=== PATIENT | male | born 1985 ===

== ENCOUNTER 2016-07-04 05:05 | Emergency (ER) | payer SELFPAY ==
[2016-07-04] MEDS ORDERED: Amoxicillin-Clav 875-125 mg Tab PO STA (05:34)
--- NOTE | 2016-07-04 05:35 | C.PDOC ---
History Of Present Illness 30 yo male come in for evaluation of Right thumb injury sustained hour [employer]. Pt sts, " car door closed on my finger". Noted nail avulsion to Right thumb. Otherwise, pt denies weakness, sensory or vascular deficits to injured hand. Ambulate to ED. - HPI Time Seen by Provider: 07/04/16 05:17 Chief Complaint (Nursing): Trauma History Per: Patient Onset/Duration Of Symptoms: Sudden Onset Past Medical History Reviewed: Historical Data, Nursing Documentation, Vital Signs Vital Signs: Last Vital Signs Temp 97.6 F 07/04/16 05:22 Pulse 88 07/04/16 05:22 Resp 20 07/04/16 05:22 BP 143/75 07/04/16 05:22 Pulse Ox 97 07/04/16 05:34 - Medical History PMH: No Chronic Diseases Family History: States: No Known Family Hx - Social History Hx Alcohol Use: Yes Hx Substance Use: No - Immunization History Hx Tetanus Toxoid Vaccination: No Review Of Systems Except As Marked, All Systems Reviewed And Found Negative. Musculoskeletal: Positive for: Hand Pain Skin: Positive for: Lesions Neurological: Negative for: Weakness, Numbness Physical Exam - Physical Exam Appears: Well, Non-toxic, No Acute Distress Skin: Normal Color, Warm Extremity: Normal ROM (left hand), Capillary Refill (less than 2sec to left hand ), No Deformity, Other (Left hand: thumb nail avulsion with mild bloody oozing. No obvious deformity, FAROM, no neurovascular deficits.) Neurological/Psych: Oriented x3, Normal Speech, Normal Motor, Normal Sensation, Normal Reflexes ED Course And Treatment O2 Sat by Pulse Oximetry: 97 - Other Rad Left hand X-Ray: Interpreted by Me, Viewed By Me Interpretation: no acute fx or dislocation Progress Note: On re-eavl, pt is afebrile, hemodynamicaly stable. Non-toxic. Left hand: nail amputated, nailbed laceration repaired. Wound cover with xeroform/sterille dressing. ALuminium finger splint applied to left thumb. No neurovascular deficits. xray review, no acute fx. tetanus, analgesics, antibiotic oraly given. Pt advised return to ED in 2 days for wound check. return to ed at any time if any worsening or new changes. Laceration - Laceration Repair Left thumb Wound Length (In cm): 1cm Description Of Wound: Irregular (nail avulsion with amputation, nail bed laceration) Anesthesia: Lidocaine 2% (digital block) Wound Examination: Irrigated With Saline, No FB With Wound Exploration, No Tendon Injury With Wound Exploration Wound Closure: Suture (#3) Suture Technique And Material Used: Interrupted, Vicryl (4-0) Wound Complexity: Simple Disposition Counseled Patient/Family Regarding: Studies Performed, Diagnosis, Need For Followup, Rx Given - Disposition Referrals: Rodrigo Heaton MD [Staff Provider] - Disposition: HOME/ ROUTINE Disposition Time: 05:58 Condition: STABLE Additional Instructions: Take medication as prescribed Light duty to injured finger Return to ED in 2 days for wound check. Return to ED at any time if any worsening or new changes. Prescriptions: Amoxicillin/Clavulanate [Augmentin 875 MG-125 MG] 1 tab PO BID #14 tab Ibuprofen [Motrin] 1 tab PO TID PRN #20 tab PRN Reason: Pain Instructions: Nail Avulsion (ED) Print Language: TONGAN - Clinical Impression Clinical Impression: Nail avulsion, finger
[2016-07-04] MEDS ORDERED: Amoxicillin-Clav 875-125 mg Tab PO ONE (06:04)
[2016-07-04 06:17] VITALS: BP 140/70; PULSE 80; RESP 16; TEMP 98; O2SAT 98
--- NOTE | 2016-07-04 09:19 | RAD ---
PROCEDURE: Right Hand Radiographs. HISTORY: injury COMPARISON: None available. FINDINGS: BONES: Well corticated ossific density adjacent to the ulna styloid compatible with remote injury. No acute displaced fracture. JOINTS: No dislocation. SOFT TISSUES: Soft tissue swelling. No evidence of radiopaque foreign body. OTHER FINDINGS: None. IMPRESSION: Soft tissue swelling. No acute displaced fracture, dislocation, or significant joint effusion identified. If symptoms persist, or if there is continued clinical concern, x-ray follow-up in 7-10 days should be considered.
== END 2016-07-04 06:17 | disposition home or self-care (01) ==
LOC: C.ER 05:05
DX: S61.102A Unspecified open wound of left thumb with damage to nail, initial encounter (principal); W23.0XXA Caught, crushed, jammed, or pinched between moving objects, initial encounter

== ENCOUNTER 2016-11-01 21:54 | Emergency (ER) | payer SELFPAY ==
[2016-11-01 22:05] VITALS: RESP 16
[2016-11-01] MEDS ORDERED: Albuterol-Ipratrop 3 mg / 0.5 (3 ml) UD ONE ×3 (22:05→23:33)
[2016-11-01] MEDS ORDERED: Albuterol-Ipratrop 3 mg / 0.5 (3 ml) UD INH STA ×2 (22:19→23:14)
[2016-11-01] MEDS ORDERED: Sodium Chloride 0.9% 1,000 ML IV ONE (22:19)
[2016-11-01 22:33] LABS: BASO % 0.4 % (0.0-2.0); EOS # 0.4 K/uL (0.0-0.7); EOS % 3.9 % (0.0-4.0); HEMATOCRIT 43.2 % (35.0-51.0); LYMPH # 1.6 K/uL (1.0-4.3); LYMPH % 15.9 % (20.0-40.0); MEAN CELL VOLUME 83.7 fL (80.0-94.0); MEAN CORPUSCULAR HEMOGLOBIN 28.7 pg (27.0-31.0); MEAN CORPUSCULAR HGB CONC 34.3 g/dL (33.0-37.0); MEAN PLATELET VOLUME 8.2 fL (7.2-11.7); MONO % 9.9 % (0.0-10.0); WHITE BLOOD COUNT 9.9 K/uL (4.8-10.8)
[2016-11-01 22:41] LABS: CHLORIDE 101 mmol/L (98-107); POTASSIUM 4.1 mmol/L (3.6-5.2); SODIUM 139 mmol/L (132-148)
[2016-11-01 22:44] LABS: ALB/GLOB RATIO 1.2 (1.0-2.1); ALKALINE PHOSPHATASE 82 U/L (38-126); ALT/SGPT 33 U/L (21-72); AST/SGOT 18 U/L (17-59); BILIRUBIN,TOTAL 0.6 mg/dL (0.2-1.3); BLOOD UREA NITROGEN 14 mg/dL (9-20); CARBON DIOXIDE 27 mmol/L (22-30); GFR AFRICAN-AMERICAN > 60; GLUCOSE,RANDOM 90 mg/dL (75-110); TOTAL PROTEIN 7.3 g/dL (6.3-8.3)
[2016-11-01 22:45] LABS: CALCIUM 9.1 mg/dl (8.6-10.4)
--- NOTE | 2016-11-01 23:15 | C.PDOC ---
History Of Present Illness 31 year old male who presents to the ER with a complaint of SOB for the past 1 day, associated with a dry nonproductive cough. Denies fever, chills, Hx of asthma, or recent sick contact. Time Seen by Provider: 11/01/16 22:14 Chief Complaint (Nursing): Shortness Of Breath History Per: Patient History/Exam Limitations: no limitations Onset/Duration Of Symptoms: Days Current Symptoms Are (Timing): Still Present Initiating Event: Other (Not known) Current Respiratory Medications: None Associated Symptoms: denies: Fever, Chills Recent travel outside of the [place]: No Past Medical History Reviewed: Historical Data, Nursing Documentation, Vital Signs Vital Signs: Last Vital Signs Temp 98.7 F 11/01/16 22:04 Pulse 81 11/01/16 22:04 Resp 16 11/01/16 22:04 BP 126/73 11/01/16 22:04 Pulse Ox 93 L 11/01/16 23:18 - Medical History PMH: No Chronic Diseases Surgical History: No Surg Hx Family History: States: Unknown Family Hx - Social History Hx Alcohol Use: Yes Hx Substance Use: No - Immunization History Hx Tetanus Toxoid Vaccination: No Hx Influenza Vaccination: No Hx Pneumococcal Vaccination: No Review Of Systems Constitutional: Negative for: Fever, Chills Respiratory: Positive for: Cough, Shortness of Breath. Negative for: Sputum Physical Exam - Physical Exam Appears: Non-toxic, No Acute Distress Skin: Normal Color, Warm, Dry Head: Atraumatic, Normacephalic Oral Mucosa: Moist Chest: Symmetrical, No Tenderness Cardiovascular: Rhythm Regular, No Murmur Respiratory: No Rales, Rhonchi (Scattered throughout), Wheezing (Scattered throughout) Gastrointestinal/Abdominal: Soft Neurological/Psych: Oriented x3, Normal Speech, Normal Cognition ED Course And Treatment - Laboratory Results Result Diagrams: 11/01/16 22:30 11/01/16 22:30 Lab Interpretation: Normal ECG: Interpreted By Me ECG Rhythm: Sinus Rhythm ECG Interpretation: Normal Rate From EC O2 Sat by Pulse Oximetry: 93 Pulse Ox Interpretation: Abnormal - Radiology CXR: Interpreted by Me CXR Interpretation: Yes: No Acute Disease Progress Note: duoneb, solumedrol, IVF Reevaluation Time: 23:17 Reassessment Condition: Improved Medical Decision Making Medical Decision Making: no industrial nor professional air irritant exposures, but smokes 1 cigar/day ok to treat as opt. Disposition Doctor Will See Patient In The: Office Counseled Patient/Family Regarding: Studies Performed, Diagnosis - Disposition Referrals: [facility] [Outside] [facility] [Outside] [facility] [email or web address] [facility] [Outside] Disposition: HOME/ ROUTINE Disposition Time: 23:18 Condition: GOOD Additional Instructions: Albuterol puffer: 2 puffs every 4 hours always use with Aerochamber Spacer- tubo plastico- se funciona mejor Prednisona 40 mg diario por 4 ley mas Pepcid 20 mg en la noche para prevenir irritacio'n del estomacho debido al prednisona Sigue con la Clinica en 2-3 ley para re-evaluacion' lobo necessario Swati de fumar. Prescriptions: Albuterol HFA [Ventolin HFA 90 mcg/actuation (8 g)] 2 puff IH Q4H PRN #1 unit PRN Reason: asthma Prednisone [Deltasone] 40 mg PO DAILY #8 tablet Spacer, Inhalation [Aerochamber] 1 dev IH DAILY #1 dev Instructions: How to Stop Smoking (ED), Reactive Airways Disease (ED) Forms: [employer] (Comoran) Print Language: EQUATORIAL GUINEAN - Clinical Impression Clinical Impression: Cough, Wheezing - Scribe Statement The provider has reviewed the documentation as recorded by the Scribjuan c Harris All medical record entries made by the Scribe were at my direction and personally dictated by me. I have reviewed the chart and agree that the record accurately reflects my personal performance of the history, physical exam, medical decision making, and the department course for this patient. I have also personally directed, reviewed, and agree with the discharge instructions and disposition.
[2016-11-02 00:11] VITALS: BP 155/83; PULSE 85; TEMP 98; O2SAT 99
--- NOTE | 2016-11-02 08:22 | RAD ---
HISTORY: SOB COMPARISON: No prior. TECHNIQUE: Chest PA and lateral FINDINGS: LUNGS: Lung volumes symmetrical and within normal limits. No consolidation. The hilar perihilar bronchial markings associated peribronchial thickening can be seen inflammatory changes and mild central bronchiectasis. Adn with bronchitis. PLEURA: No significant pleural effusion identified. No pneumothorax apparent. CARDIOVASCULAR: Normal. OSSEOUS STRUCTURES: No significant abnormalities. VISUALIZED UPPER ABDOMEN: Normal. OTHER FINDINGS: None. IMPRESSION: No consolidation. Peribronchial thickening - consistent with bronchitis and/or mild central bronchiectasis - chronicity unknown
--- NOTE | 2016-11-02 17:57 | CARD ---
APPROVED REPORT EKG Measurement Heart [id number] <Conclusion> Normal sinus rhythm Normal ECG
== END 2016-11-02 00:10 | disposition home or self-care (01) ==
LOC: C.ER 21:54
DX: R06.2 Wheezing (principal); R05 Cough
CPT/HCPCS: 71020; 80053; 83880; 84484; 85025; 93005; 96374; 99285; J2930; J7040

== ENCOUNTER 2017-02-05 02:36 | Emergency (ER) | payer SELFPAY ==
[2017-02-05 02:50] VITALS: TEMP 97.2; O2SAT 100
--- NOTE | 2017-02-05 02:59 | C.PDOC ---
History Of Present Illness complains of nasal congestion since yesterday. Patient states he was unable to sleep because he cannot breathe through his nose. (Jenniffer Wei) History Per: Patient History/Exam Limitations: no limitations Onset/Duration Of Symptoms: Hrs Current Symptoms Are (Timing): Still Present Location Of Pain: None Sick Contacts (Context): None Associated Symptoms: Nasal Congestion. denies: Fever, Chills, Cough Ear Symptoms: Bilateral: None Recent travel outside of the [place]: No Time Seen by Provider: 02/05/17 02:43 Chief Complaint (Nursing): Cough, Cold, Congestion Past Medical History Reviewed: Historical Data, Nursing Documentation, Vital Signs - Medical History PMH: No Chronic Diseases Surgical History: No Surg Hx Family History: States: Unknown Family Hx - Social History Hx Alcohol Use: Yes Hx Substance Use: No - Immunization History Hx Tetanus Toxoid Vaccination: No Hx Influenza Vaccination: No Hx Pneumococcal Vaccination: No Vital Signs: Last Vital Signs Temp 97.2 F L 02/05/17 02:46 Pulse 82 02/05/17 03:23 Resp 20 02/05/17 03:23 BP 122/78 02/05/17 03:23 Pulse Ox 100 02/05/17 04:15 Review Of Systems Constitutional: Negative for: Fever, Chills ENT: Positive for: Nose Congestion Respiratory: Negative for: Cough, Sputum, Wheezing Gastrointestinal: Negative for: Nausea, Vomiting Physical Exam - Physical Exam Appears: Non-toxic, No Acute Distress Skin: Normal Color, Warm, Dry Head: Atraumatic, Normacephalic Eye(s): bilateral: Normal Inspection Ear(s): Bilateral: Normal Nose: Other (nasal congestion) Oral Mucosa: Moist Throat: Normal, No Erythema, No Exudate Neck: Normal, Supple Chest: Symmetrical, No Tenderness Cardiovascular: Rhythm Regular Respiratory: Normal Breath Sounds, No Rales, No Rhonchi, No Wheezing Neurological/Psych: Oriented x3, Normal Speech, Other (No focal deficits) ED Course And Treatment O2 Sat by Pulse Oximetry: 100 (Room air) Pulse Ox Interpretation: Normal Medical Decision Making Medical Decision Making: Patient with nasal congestion. No signs of distress. Explain to patient nasal congestion does not require antibiotics. Will treat with Claritin in ED. Recommend decongestant and nasal spray. Rx given. Instruct patient to follow up in the clinic for further care. (Jenniffer Wei) Disposition Counseled Patient/Family Regarding: Diagnosis, Need For Followup, Rx Given - Disposition Disposition Time: 02:58 - POA Present On Arrival: None - Disposition Referrals: Non [facility] Provider, [Primary Care Provider] - Disposition: HOME/ ROUTINE Condition: GOOD Additional Instructions: Vaya a abernathy mdico o la clnica en 2-5 elias sin falta, para mas evaluacin. [place] los medicamentos lobo indicado. Volver a la [place] de emergencia en cualquier momento si los sntomas persisten o empeoran Prescriptions: Pseudoephedrine HCl [Sudafed] 30 mg PO Q8 #24 tablet Sodium Chloride/Aloe Vera [Clements Saline Nasal Gel Gable] 22 ml NS BID #1 spray Instructions: Rhinosinusitis (ED) Forms: [employer] (Turkmen) Print Language: YEMENI - Clinical Impression Clinical Impression: Nasal congestion - Scribe Statement The provider has reviewed the documentation as recorded by the Scribe - Scribe Statement Liang Harris All medical record entries made by the Scribe were at my direction and personally dictated by me. I have reviewed the chart and agree that the record accurately reflects my personal performance of the history, physical exam, medical decision making, and the department course for this patient. I have also personally directed, reviewed, and agree with the discharge instructions and disposition. (Jenniffer Wei)
[2017-02-05 05:18] VITALS: BP 122/78; PULSE 82; RESP 20
== END 2017-02-05 03:23 | disposition home or self-care (01) ==
LOC: SUPCPDRO 02:36 → C.ER 02:36
DX: R09.81 Nasal congestion (principal)

== ENCOUNTER 2018-07-01 07:00 | Emergency (ER) | payer MEDICAID, OTHER ==
[2018-07-01 07:14] VITALS: PULSE 90
--- NOTE | 2018-07-01 07:55 | C.PDOC ---
History Of Present Illness 32 y/o male, currently undomiciled, c/o frontal headache, left ear pain, nasal congestion. pt sts he slept outside in the rain. +mild cough. no fever. Time Seen by Provider: 07/01/18 07:24 Chief Complaint (Nursing): Headache History Per: Patient History/Exam Limitations: no limitations Onset/Duration Of Symptoms: Hrs, Waxing/Waning Severity: Moderate Quality: "Pain" Preceeding Symptoms: None Associated Symptoms: denies: Photophobia, Blurred Vision, Nausea, Vomiting Recent travel outside of the [place]: No Past Medical History Reviewed: Historical Data, Nursing Documentation, Vital Signs Vital Signs: Last Vital Signs Temp 99 F 07/01/18 07:11 Pulse 90 07/01/18 07:11 Resp 20 07/01/18 07:11 BP 145/89 07/01/18 07:11 Pulse Ox 95 07/01/18 07:11 - Medical History PMH: Asthma Denies: Chronic Kidney Disease Family History: States: Unknown Family Hx - Social History Hx Tobacco Use: Yes Hx Alcohol Use: Yes Hx Substance Use: No - Immunization History Hx Tetanus Toxoid Vaccination: No Hx Influenza Vaccination: No Hx Pneumococcal Vaccination: No Review Of Systems Constitutional: Negative for: Fever, Chills ENT: Positive for: Ear Pain, Nose Discharge. Negative for: Throat Pain Cardiovascular: Negative for: Chest Pain Respiratory: Positive for: Cough. Negative for: Shortness of Breath, Wheezing Gastrointestinal: Negative for: Vomiting, Abdominal Pain Musculoskeletal: Negative for: Neck Pain Neurological: Positive for: Headache. Negative for: Weakness, Numbness Physical Exam - Physical Exam Appears: Non-toxic, No Acute Distress, Unkempt Skin: Warm, Dry Head: Atraumatic, Normacephalic, Tenderness (frontal sinus tenderness) Eye(s): bilateral: PERRL, Other (watery) Ear(s): Left: TM Erythema, Right: Normal Oral Mucosa: Moist Tongue: Normal Appearing Lips: Normal Appearing Throat: Erythema, No Exudate Neck: Supple Cardiovascular: Rhythm Regular, No Murmur Respiratory: No Decreased Breath Sounds, No Rales, No Rhonchi, No Wheezing Gastrointestinal/Abdominal: Bowel Sounds, Soft, No Tenderness Extremity: Normal ROM, No Pedal Edema Neurological/Psych: Oriented x3, Normal Speech, Normal Cognition ED Course And Treatment O2 Sat by Pulse Oximetry: 95 (RA) Pulse Ox Interpretation: Normal Medical Decision Making Medical Decision Makin32 y/o male slept in rain. has ear pain. frontal headache, nasal congestion. +left otitis media. will tx with amox. tylenol for garcia. will give pt senior care information. 1010 pt resting comfortably. headache resolved. will d/c with amox, tylenol, flonase and claritin with clinic f/u Disposition Counseled Patient/Family Regarding: Diagnosis, Need For Followup, Rx Given - Disposition Referrals: [facility] [Outside] Disposition: HOME/ ROUTINE Disposition Time: 10:12 Condition: IMPROVED Additional Instructions: Please take antibiotic until done. Use claritin once a day. Use flonase one spray per nose per day. Tylenol for headache. Follow up in medical clinic in a few days. Prescriptions: Acetaminophen [Tylenol 325mg tab] 650 mg PO Q4 #50 tab Amoxicillin [Amoxil 500 mg Cap] 500 mg PO BID #20 cap Fluticasone Nasal [Flonase] 1 actuation NS DAILY #1 spr Loratadine [Claritin] 10 mg PO DAILY #30 tab Instructions: Ear Infections (Otitis Media) (DC), Seasonal Allergies (DC) Forms: Gen Discharge Inst Djib[place]ian, [facility] (Djiboutian) - Clinical Impression Clinical Impression: Otitis media, left, Seasonal allergies
[2018-07-01 10:31] VITALS: BP 127/75; RESP 18; TEMP 97.4
[2018-07-03 16:29] VITALS: O2SAT 95
== END 2018-07-01 10:31 | disposition home or self-care (01) ==
LOC: C.ER 07:00
DX: H66.92 Otitis media, unspecified, left ear (principal); J30.2 Other seasonal allergic rhinitis; Z72.0 Tobacco use